=== PATIENT | female | born 1955 | race Caucasian/White ===

== ENCOUNTER → 2021-05-15 | Outpatient (CLI) | payer OTHER | LOC: EXRD 08:01 | DX: Z78.0 Asymptomatic menopausal state (principal); R94.5 Abnormal results of liver function studies | CPT/HCPCS: 77080 ==

== ENCOUNTER → 2021-05-28 | Outpatient (CLI) | payer OTHER | LOC: EXRD 08:22 | DX: R94.5 Abnormal results of liver function studies (principal); Z78.0 Asymptomatic menopausal state; K76.0 Fatty (change of) liver, not elsewhere classified; K82.4 Cholesterolosis of gallbladder | CPT/HCPCS: 76705 ==